=== PATIENT | male | born 1955 | race African-American/Black ===

== ENCOUNTER 2023-06-13 10:47 | Outpatient (AMB) | payer OTHER, SELFPAY ==
[2023-06-13 10:52] VITALS: BP 140/80; PULSE 83; O2SAT 98; BMI 26.4
--- NOTE | 2023-06-13 10:52 | MHC.PC.OV ---
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 Allergies No Known Allergies Allergy (Verified 06/13/23 11:48) Medication List - Last Reconciled 06/13/23 by Jasen Angeles PA-C No Known Home Meds Tobacco use date assessed: 06/13/23 Fall risk assessment: No Falls in past year Last assessed Fall Risk: 06/13/23 Dental Screening Dental Screen Date: 06/13/23 Did you have a dental visit in the last 12 months?: Yes Did you have a dental problem in the last 6 months where you did not have access to dental care?: No Was dental information given to patient?: 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 Past medical history of HTN. He reports he was on several medications for his blood pressure in the past though had side effects of rash, urinary frequency and edema. Has been trying to work on lifestyle modifications to control his blood pressure Patient's previous PCP was was at [facility]. He has been told by his previous PCP was prediabetic and had borderline high cholesterol. He has been making lifestyle modifications to his diet and trying to be more active in order to control his cholesterol and blood sugars. Reports he has been feeling better since lifestyle modifications have been implemented. Colon cancer screening: Has not had any colon cancer screening. He is willing to do Cologuard .. Vaccines: Needs up-to-date tetanus, up-to-date with COVID and pneumonia vaccines, Considering Shingrex. [facility] Family History Mother No problems noted. Father No problems noted. Brother No problems noted. Brother No problems noted. Brother No problems noted. Brother No problems noted. Sister No problems noted. Sister No problems noted. Sister No problems noted. Sister No problems noted. Daughter No problems noted. Daughter No problems noted. Son No problems noted. Son No problems noted. Social History (Updated 06/13/23 @ 11:56 by Jasen Angeles PA-C) Housing: Apartment Alcohol intake: current Alcohol intake frequency: holidays/special occasions only Alcohol type: beer Patient Tobacco Use Status: Former Tobacco user Tobacco use type: Cigarette e-Cigarette/Vaping Use: Never Used Second Hand Smoke Exposure: No service: No Current occupational status: retired Current occupational exposures/hazards: No Cognitive needs: No Hearing needs: No Vision needs: Yes Questionnaire PHQ-9 Over the last 2 weeks, how often have you been bothered by any of the following problems? 1. Little interest or pleasure in doing things: more than half the days 2. Feeling down, depressed, or hopeless: more than half the days 3. Trouble falling or staying asleep, or sleeping too much: not at all 4. Feeling tired or having little energy: not at all 5. Poor appetite or overeating: not at all 6. Feeling bad about yourself - or that you are a failure or have let yourself or your family down: not at all 7. Trouble concentrating on things, such as reading the newspaper or watching television: not at all 8. Moving or speaking so slowly that other people could have noticed. Or the opposite - being so fidgety or restless that you have been moving around a lot more than usual: not at all 9. Thoughts that you would be better off or of hurting yourself in some way: not at all Total score: 4 Depression Screening Interpretation: Negative [id number] - PHQ-9 Billing: Yes Source: Developed by Drs. Bartolome Diaz, Paola Villanueva, Ishmael Jung and colleagues, with an educational gillian from [employer]. Thrive Questionnaire Date Thrive assessed: 06/13/23 I am a: Patient What is your living situation today?: I have a steady place to live Within the past 12 months, did the food you bought not last and you didn't have the money to get more?: Never true Within the past 12 months, did you worry whether your food would run out before you got money to buy more?: Never true Do you have trouble paying for medicines?: No Do you have trouble getting transportation to medical appointments?: No Do you have trouble paying your heating and electricity bill?: No Do you have trouble taking care of your child, family member or friend?: No Do you have trouble with day-to-day activities such as bathing, preparing meals, shopping, managing finances, etc.?: No Are you currently unemployed and looking for a job?: No Are you interested in more education?: No Currently or been in a relationship where the following occur: no concerns reported AUDIT C Alcohol Use Questionnaire (AUDIT-C) 1. How often do you have a drink containing alcohol?: 2-3 times a week 2. How many drinks containing alcohol do you have on a typical day when you are drinking?: 1 or 2 3. How often do you have six or more drinks on one occasion?: Never Total Score: 3 HALEY-7 AMB Questionnaire HALEY-7 Date HALEY - 7 assessed: 06/13/23 Feeling nervous, anxious, or on edge: 1 = Several days Not being able to stop or control worryin = Not at all Worrying too much about different things: 0 = Not at all Trouble relaxin = Not at all Being so restless that it is hard to sit still: 0 = Not at all Becoming easily annoyed or irritable: 0 = Not at all Feeling afraid as if something awful might happen: 0 = Not at all Total HALEY-7 score (0-4 normal; 5-9 mild; 10-14 moderate; 15-21 severe): 1 Source: Developed by Drs. Bartolome Diaz, Paola Villanueva, Ishmael Jung and colleagues, with an educational gillian from [employer]. HALEY-7 Assessment Billing HALEY-7 Assessment Tool: HALEY-7 Assessment 38069 Review of Systems Const Denies body aches, Denies chills, Denies excessive sweating, Denies fatigue, Denies fever(s) and Denies headache(s) Eyes Denies blurry vision ENT Denies dysphagia, Denies vertigo, Denies dizziness, Denies headache(s), Denies hearing loss and Denies tinnitus Card Denies chest pain, Denies chest pain with activity, Denies syncope, Denies irregular heart rhythm and Denies dyspnea Resp Denies chest congestion, Denies cough, Denies hemoptysis, Denies dyspnea and Denies wheezing GI Denies abdominal pain, Denies melena, Denies hematochezia, Denies coffee ground emesis, Denies dysphagia, Denies diarrhea, Denies nausea and Denies vomiting Denies difficulty urinating, Denies dysuria, Denies urinary frequency, Denies urinary hesitancy and Denies urinary urgency Musc Denies arthralgias, Denies limited range of motion, Denies muscle cramps and Denies muscle weakness Skin/Breast Denies rash and Denies skin ulcer Neuro Denies Abnormal speech present, Denies confusion, Denies vertigo, Denies dizziness, Denies syncope, Denies headache(s), Denies memory loss and Denies seizure-like activity Psych Denies anxiety, Denies confusion, Denies depression, Denies memory loss, Denies panic attacks and Denies paranoia Endo Denies excessive sweating, Denies fatigue, Denies flushing, Denies polydipsia and Denies polyuria Aller/Immun Denies wheezing Physical exam (Primary Care) Vital Signs: Last Vital Signs Pulse 83 06/13/23 10:52 BP 140/80 H 06/13/23 10:52 Pulse Ox 98 06/13/23 10:52 Oxygen Delivery Method Room Air 06/13/23 10:52 BMI result Body Mass Index 26.4 Tobacco/Smoking Status: Tobacco use Status Tobacco use date assessed 06/13/23 06/13/23 11:24 Patient Tobacco Use Status Former Tobacco user 06/13/23 11:56 Tobacco use type Cigarette 06/13/23 11:56 e-Cigarette/Vaping Use Never Used 06/13/23 11:56 PHQ-9: PHQ-9 Score PHQ-9: Total score 4 06/13/23 11:58 Depression Screening Interpretation: Negative Thrive Assessment: Date of Thrive Assessment Date Thrive assessed 06/13/23 06/13/23 10:53 Currently or been in a relationship where the following occur: no concerns reported Const General: cooperative, comfortable, no acute distress, alert and awake; No confusion Orientation/consciousness: oriented to person, oriented to place, patient oriented x3 and No confusion HENMT Head: Yes normocephalic Ears: external ears normal and TM's normal bilaterally Face and sinus: No sinus tenderness Mouth: Normal oral and palatal mucosa present and tongue normal Teeth and gingiva: dentition normal and gingiva normal Throat: Yes posterior oropharynx normal, Yes tonsils normal and Yes uvula midline Eyes Conjunctivae: conjunctivae normal Sclerae: sclerae normal Pupils: Equal, round and reactive pupils present EOM: EOMs intact bilaterally Direct Ophthalmoscopy: No no photophobia Neck Neck: Yes no lymphadenopathy, No tender and Yes no JVD Thyroid: Thyroid normal Carotids: no bruits Chest Chest palpation & inspection: no tenderness Resp Effort & Inspection: normal respiratory effort, no audible wheezes, not labored and no stridor Auscultation: no crackles, no rales, no rhonchi and no wheezes Cardio Jugular venous distension: no JVD Rate: regular rate, not bradycardic and not tachycardic Rhythm: regular rhythm Bruits: no carotid bruits Peripheral pulses: Peripheral pulses 2+ throughout GI Inspection: Yes normal to inspection, No abdominal wall ecchymosis and No visible herniation Palpation (GI): Soft to palpation, nontender, no guarding, not rigid and No hepatosplenomegaly present Auscultation: normoactive bowel sounds General: Yes no CVA tenderness Back/Spine/Pelvis Back: no CVA tenderness and No back tenderness Cervical Spine: cervical ROM normal Thoracic/Lumbar Spine: thoracic and lumbar spine normal to inspection, straight leg raise negative bilaterally, No thoraco-lumbar ROM limited and No lumbar spinal tenderness Skin Lesions: no lesions Rashes: no rashes Wounds: no wounds Neuro General: oriented to person, oriented to place, patient oriented x3, CN's II-XI intact bilaterally and No confusion Cranial nerves: Yes Equal, round and reactive pupils present and Yes Normal accommodation reflex present Cognition (Neuro): normal cognition Speech: No Abnormal speech present Gait exam (Neuro): Normal gait present Motor exam (neuro): 5/5 motor strength present throughout Extrem Right upper extremity: full ROM; no cyanosis Left upper extremity: full ROM; no cyanosis Right lower extremity: no edema Left lower extremity: no edema Psych Appearance: grossly normal Mental Status: mental status grossly normal Affect: normal affect Attitude: cooperative Thought process: Normal thought process present Assessment and Plan Assessment & Plan (1) Annual physical exam: Code(s): Z00.00 - Encounter for general adult medical examination without abnormal findings (2) Screening for diabetes mellitus (DM): Code(s): Z13.1 - Encounter for screening for diabetes mellitus (3) HTN (hypertension): Code(s): I10 - Essential (primary) hypertension Plan: Patient has a history of hypertension, was treated with antihypertensive medications in the past though had side effect. Has been working on lifestyle modifications to control his blood pressure. He does monitors blood pressure at home reports 130s to 135 systolic. Otherwise denies any headaches, chest pain, shortness of breath. Will continue to work on lifestyle modifications to control his blood pressure and continue monitoring at home with goal blood pressure be below 140/90 (4) Screening PSA (prostate specific antigen): Code(s): Z12.5 - Encounter for screening for malignant neoplasm of prostate (5) Impaired glucose metabolism: Code(s): R73.09 - Other abnormal glucose Plan: Patient has been told he is a prediabetic and has made lifestyle modifications. Will recheck fasting lipids in A1c to assure reasonable range. (6) Colon cancer screening: Code(s): Z12.11 - Encounter for screening for malignant neoplasm of colon Plan: Willing to do Cologuard (7) Borderline high cholesterol: Code(s): E78.9 - Disorder of lipoprotein metabolism, unspecified Plan: Patient has been told he had borderline high cholesterol by his previous PCP. Will check a fasting lipid panel to assure or reasonable total cholesterol and LDL. Will consider statin therapy if LDL above 160 Orders: Orders Comprehensive [place]. Panel Fast Today R73.09 - Other abnormal glucose Hemoglobin A1c Today R73.09 - Other abnormal glucose Complete Blood Count no Diff Today R73.09 - Other abnormal glucose Prostate Specific Antigen Scr Today Z12.5 - Encounter for screening for malignant neoplasm of prostate Microalbumin, Random (w Creat) Today I10 - Essential (primary) hypertension Lipid Panel Today E78.9 - Disorder of lipoprotein metabolism, unspecified Referrals Cologuard Test Z12.11 - Encounter for screening for malignant neoplasm of colon Coding Level of Care Code New Pt Prev Care >65yr (85454) Diagnoses Annual physical exam Z00.00 Screening for diabetes mellitus (DM) Z13.1 HTN (hypertension) I10 Screening PSA (prostate specific antigen) Z12.5 Impaired glucose metabolism R73.09 Colon cancer screening Z12.11 Borderline high cholesterol E78.9 Additional Codes HALEY-7 Assessment Billing - HALEY-7 Assessment Tool: HALEY-7 Assessment [id number] ([id number])
== END 2023-06-13 12:30 | disposition home or self-care (01) ==
PROVIDERS: PCP Physician Assistant; Visit Provider Physician Assistant
DX: Z00.00 Encounter for general adult medical examination without abnormal findings (principal); Z13.1 Encounter for screening for diabetes mellitus; I10 Essential (primary) hypertension; Z12.5 Encounter for screening for malignant neoplasm of prostate; R73.09 Other abnormal glucose; Z12.11 Encounter for screening for malignant neoplasm of colon; E78.9 Disorder of lipoprotein metabolism, unspecified
CPT/HCPCS: 99387

== ENCOUNTER 2023-06-14 09:28 | Outpatient (REF) | payer OTHER, SELFPAY ==
[2023-06-14 09:50] LABS: Hematocrit 42.2 % (42.0-52.0); Hemoglobin 13.4 g/dl (14.0-18.0); Mean Corpuscular HGB Conc 31.8 g/dl (31.0-36.0); Mean Corpuscular Hemoglobin 27.2 pg (27.0-33.0); Mean Corpuscular Volume 85.8 fL (80.0-98.0); Platelet Count 186 X10*3/uL (160-400); Red Blood Count 4.92 X10*6/uL (4.60-5.80); Red Cell Distribution Width 14.4 % (11.0-16.0); White Blood Count 4.1 X10*3/uL (4.8-10.8)
[2023-06-14 10:01] LABS: Estimated Average Glucose 120 mg/dL; Hemoglobin A1c % 5.8 %
[2023-06-14 10:55] LABS: Creatinine Urine 189.16 mg/dL; Microalbumin Urine < 5.0 mg/L
[2023-06-14 11:01] LABS: Alanine Aminotransferase 43 U/L (0-40); Albumin Level 4.2 g/dL (3.5-5.0); Alkaline Phosphatase 49 U/L (39-117); Anion Gap 16 (12-20); Aspartate Amino Transferase 30 U/L (5-37); Bilirubin Total 0.6 mg/dL (0.0-1.0); Blood Urea Nitrogen 12 mg/dL (9-16); Calcium 9.4 mg/dL (8.4-10.2); Carbon Dioxide 23 mmol/L (22-29); Chloride 105 mmol/L (96-108); Cholesterol 252 mg/dL; Estimated Glomerular Filt Rate > 60; Glucose Fasting 99 mg/dL (60-99); HDL Cholesterol 44 mg/dL; LDL Cholesterol Calculated 163 mg/dl; Potassium 4.6 mmol/L (3.3-5.1); Sodium 139 mmol/L (135-145); Total Protein 7.8 g/dL (6.5-8.0); Triglycerides 228 mg/dL
[2023-06-14 11:23] LABS: Prostate Specific Antigen Scr 3.85 ng/mL (<0.05-4.0)
== END 2023-06-14 09:29 | disposition home or self-care (01) ==
LOC: HO.LAB 09:28
PROVIDERS: PCP Physician Assistant; Visit Provider Physician Assistant
DX: Z12.5 Encounter for screening for malignant neoplasm of prostate (principal); R73.09 Other abnormal glucose; I10 Essential (primary) hypertension; E78.9 Disorder of lipoprotein metabolism, unspecified
CPT/HCPCS: 36415; 80053; 80061; 82043; 83036; 84153; 85027

== ENCOUNTER 2023-09-16 10:49 | Outpatient (AMB) | payer OTHER, SELFPAY ==
--- NOTE | 2023-09-16 10:52 | MHC.PC.OV ---
Vital Signs 09/16/23 10:53 Height 6 ft 4 in Weight 218 lb BMI 26.5 BP 130/76 Blood Pressure Location Lt brachial Position Sitting Pulse 73 Pulse Source Pulse Oximeter Pulse Oximetry (%) 98 Oxygen Delivery Method Room Air Intake Visit Reasons: f/u HTN/ HLD Intake Note: Patient is here to follow up on HTN, HLD. Firer Retort Required: No Binder Cutter: Not Required per policy Accompanied by: Self / Same As Patient Allergies No Known Allergies Allergy (Verified 09/16/23 11:04) Medication List - Last Reconciled 09/16/23 by Jasen Angeles PA-C simvastatin 10 mg PO DAILY Tobacco use date assessed: 09/16/23 Fall risk assessment: No Falls in past year Last assessed Fall Risk: 09/16/23 Dental Screening Dental Screen Date: 09/16/23 Did you have a dental visit in the last 12 months?: Yes Did you have a dental problem in the last 6 months where you did not have access to dental care?: No Was dental information given to patient?: Patient has dentist HPI f/u HTN/ HLD HPI Details Patient is a 68-year-old male here today for a follow-up visit. Patient has a past medical history significant for hypertension, hyperlipidemia, impaired glucose metabolism Concern--> reports right ear has felt congested in does use [id number] ear drops to help remove wax. .. Hyperlipidemia: Most recent labs showing high total cholesterol. Patient has been started on low-dose statin therapy will recheck lipid panel to assure normalization of cholesterol and LDL. .. Impaired glucose metabolism: Most recent A1c of 5.8. Fasting blood sugar appropriate below 100. He will continue to work on lifestyle modifications. . History of hypertension: Blood pressure readings today in office acceptable. His Hypertension Has been diet and lifestyle managed Laboratory Tests 06/14/23 09:40 Hgb 13.4 L Hemoglobin A1c % 5.8 ALT 43 H Cholesterol 252 LDL Cholesterol, C alc 163 [facility] Surgical History (Updated 09/16/23 @ 10:56 by MARIAN Prater) No pertinent past surgical history Family History Mother No problems noted. Father No problems noted. Brother No problems noted. Brother No problems noted. Brother No problems noted. Brother No problems noted. Sister No problems noted. Sister No problems noted. Sister No problems noted. Sister No problems noted. Daughter No problems noted. Daughter No problems noted. Son No problems noted. Son No problems noted. Social History Housing: Apartment Alcohol intake: current Alcohol intake frequency: holidays/special occasions only Alcohol type: beer Patient Tobacco Use Status: Former Tobacco user Tobacco use type: Cigarette e-Cigarette/Vaping Use: Never Used Second Hand Smoke Exposure: No service: No Current occupational status: retired Current occupational exposures/hazards: No Cognitive needs: No Hearing needs: No Vision needs: Yes Questionnaire Thrive Questionnaire Date Thrive assessed: 06/13/23 HALEY-7 AMB Questionnaire HALEY-7 Date HALEY - 7 assessed: 06/13/23 Source: Developed by Drs. Bartolome Diaz, Paola Villanueva, Ishmael Jung and colleagues, with an educational gillain from [employer]. Review of Systems Const Denies headache(s) Eyes Denies loss of vision ENT Denies vertigo, Denies dizziness, Denies headache(s) and Denies sore throat Card Denies chest pain, Denies leg edema and Denies lightheadedness Resp Denies cough, Denies hemoptysis and Denies wheezing GI Denies abdominal pain, Denies melena, Denies constipation, Denies diarrhea and Denies vomiting Denies dysuria, Denies urinary frequency and Denies urinary urgency Musc Denies arthralgias, Denies joint swelling, Denies numbness and Denies tingling Neuro Denies Abnormal speech present, Denies behavioral changes, Denies vertigo, Denies dizziness, Denies headache(s), Denies loss of vision, Denies memory loss, Denies numbness and Denies tingling Psych Denies anxiety, Denies behavioral changes, Denies depression, Denies memory loss and Denies panic attacks Rubio/Lymph Denies easy bleeding and Denies easy bruising Aller/Immun Denies wheezing Physical exam (Primary Care) Vital Signs: Last Vital Signs Pulse 73 09/16/23 10:53 BP 130/76 09/16/23 10:53 Pulse Ox 98 09/16/23 10:53 Oxygen Delivery Method Room Air 09/16/23 10:53 BMI result Body Mass Index 26.5 Tobacco/Smoking Status: Tobacco use Status Tobacco use date assessed 09/16/23 09/16/23 10:57 Patient Tobacco Use Status Former Tobacco user 09/16/23 10:57 Tobacco use type Cigarette 09/16/23 10:57 e-Cigarette/Vaping Use Never Used 09/16/23 10:57 Thrive Assessment: Date of Thrive Assessment Date Thrive assessed 06/13/23 09/16/23 10:57 Const General: healthy appearing, no acute distress, alert and awake Nutritional Appearance: well nourished Orientation/consciousness: oriented to person, oriented to place and oriented to time HENMT Other: RIGHT EAR CERUMEN IMPACTION General nose exam: Normal nasal mucous membranes and turbinates present Eyes Conjunctivae: conjunctivae normal Sclerae: sclerae normal Pupils: Equal, round and reactive pupils present Neck Neck: Yes no lymphadenopathy and Yes no JVD Thyroid: Thyroid normal Carotids: no bruits Resp Effort & Inspection: normal respiratory effort and not tachypneic Auscultation: no crackles, no rales, no rhonchi and no wheezes Cardio Rate: regular rate Rhythm: regular rhythm Heart sounds: no murmurs and normal S1 and S2 GI Palpation (GI): Soft to palpation, nontender, no hepatomegaly and no splenomegaly Auscultation: normal bowel sounds Skin General skin exam: no rashes or lesions noted and dry skin Neuro General: oriented to person, oriented to place and oriented to time Cranial nerves: Yes Equal, round and reactive pupils present Speech: No Abnormal speech present Gait exam (Neuro): Normal gait present Motor exam (neuro): no tremor noted Extrem Right upper extremity: full ROM Left upper extremity: full ROM Right lower extremity: full ROM; no edema Left lower extremity: full ROM; no edema Psych Mental Status: mental status grossly normal Speech and movement: Normal speech and movement present Affect: normal affect Attitude: cooperative Thought process: Normal thought process present Office Procedures Cerumen Removal From which ear canal was the cerumen removed: right Removal: irrigation and otoscope w/curette Notes: patient tolerated procedure well and no complications 11706-Lab Irrigation/Lavage Assessment and Plan Assessment & Plan (1) HTN (hypertension): Code(s): I10 - Essential (primary) hypertension Qualifiers: Hypertension type: primary hypertension Qualified Code(s): I10 - Essential (primary) hypertension Plan: Patient has a history of hypertension, was treated with antihypertensive medications in the past though had side effect. Has been working on lifestyle modifications to control his blood pressure. He does monitors blood pressure at home reports 130s to 135 systolic. Otherwise denies any headaches, chest pain, shortness of breath. Will continue to work on lifestyle modifications to control his blood pressure and continue monitoring at home with goal blood pressure be below 140/90 (2) Impaired glucose metabolism: Code(s): R73.09 - Other abnormal glucose Plan: Patient has been told he is a prediabetic and has made lifestyle modifications. Will recheck fasting lipids in A1c to assure reasonable range. (3) HLD (hyperlipidemia): Code(s): E78.5 - Hyperlipidemia, unspecified Qualifiers: Hyperlipidemia type: mixed hyperlipidemia Qualified Code(s): E78.2 - Mixed hyperlipidemia Plan: Patient's most recent lipid panel showing high total cholesterol. Has been started on low-dose statin therapy and will recheck his lipid panel to ensure more appropriate lipid panel. Goal LDL to be below 160 (4) Impacted cerumen of right ear: Code(s): H61.21 - Impacted cerumen, right ear Plan: Remove cerumen out of right here today in office. Orders: Orders Microalbumin, Random (w Creat) Today I10 - Essential (primary) hypertension Lipid Panel Today E78.5 - Hyperlipidemia, unspecified Comprehensive [place]. Panel Fast Today I10 - Essential (primary) hypertension Coding Level of Care Code Est Pt Level 4 (84989) Diagnoses Primary hypertension I10 Hypertension type: primary hypertension Impaired glucose metabolism R73.09 Mixed hyperlipidemia E78.2 Hyperlipidemia type: mixed hyperlipidemia Impacted cerumen of right ear H61.21 CPT Codes Office Procedure - CPT: 37477-Bgh Irrigation/Lavage ([id number])
[2023-09-16 10:53] VITALS: BP 130/76; PULSE 73; O2SAT 98; BMI 26.5
== END 2023-09-16 11:35 | disposition home or self-care (01) ==
PROVIDERS: PCP Physician Assistant; Visit Provider Physician Assistant
DX: I10 Essential (primary) hypertension (principal); R73.09 Other abnormal glucose; E78.2 Mixed hyperlipidemia; H61.21 Impacted cerumen, right ear
CPT/HCPCS: 69210; 99214

== ENCOUNTER 2023-09-17 10:36 | Outpatient (REF) | payer OTHER, SELFPAY ==
[2023-09-17 12:32] LABS: Alanine Aminotransferase 45 U/L (0-40); Albumin Level 4.3 g/dL (3.5-5.0); Alkaline Phosphatase 48 U/L (39-117); Anion Gap 13 (12-20); Aspartate Amino Transferase 32 U/L (5-37); Bilirubin Total 0.7 mg/dL (0.0-1.0); Blood Urea Nitrogen 14 mg/dL (9-16); Calcium 9.8 mg/dL (8.4-10.2); Carbon Dioxide 26 mmol/L (22-29); Chloride 107 mmol/L (96-108); Cholesterol 235 mg/dL (<200); Estimated Glomerular Filt Rate > 60; Glucose Fasting 103 mg/dL (60-99); HDL Cholesterol 52 mg/dL (>40); LDL Cholesterol Calculated 140 mg/dL (<100); Potassium 4.5 mmol/L (3.3-5.1); Sodium 141 mmol/L (135-145); Total Protein 7.9 g/dL (6.5-8.0); Triglycerides 216 mg/dL (<150)
== END 2023-09-17 10:37 | disposition home or self-care (01) ==
LOC: HO.LAB 10:36
PROVIDERS: PCP Physician Assistant; Visit Provider Physician Assistant
DX: I10 Essential (primary) hypertension (principal); E78.5 Hyperlipidemia, unspecified
CPT/HCPCS: 36415; 80053; 80061

== ENCOUNTER 2024-04-27 14:25 | Outpatient (AMB) | payer OTHER, SELFPAY ==
--- NOTE | 2024-04-27 14:31 | AM.OFFWIN_ITS ---
Intake Vital Signs 04/27/24 14:38 Height 6 ft 4 in Weight 215 lb BMI 26.2 BP 132/80 Blood Pressure Location Rt brachial Position Sitting Pulse 80 Pulse Source Pulse Oximeter Temp 98.0 F Temp Source Temporal Artery Scan Pulse Oximetry (%) 98 Intake Visit Reasons: EP RT ankle Swelling Intake Note: pt is here for right ankle swelling for 4 days denies any injury Patient Tobacco Use Status: Former Tobacco user Allergies No Known Allergies Allergy (Verified 04/27/24 14:36) Do you need a note to return to daycare/school/sports/work: No HPI HPI Comments History of Present Illness Details Patient is a 68-year-old male with a history of gout flares complaining of right ankle swelling and joint pain for 4 days. He is able to ambulate on it albeit gently. He denies any trauma. He states the pain is rated the joint and does not radiate, he denies any loss of sensation or strength. He denies any fevers. He states this has happened before in different joints and he usually gets a medication for a few days and it goes away. He is unsure what that medication is but states he does not take a daily medication for his gout. [facility] Surgical History (Updated 09/16/23 @ 10:56 by MARIAN Prater) No pertinent past surgical history Family History Mother No problems noted. Father No problems noted. Brother No problems noted. Brother No problems noted. Brother No problems noted. Brother No problems noted. Sister No problems noted. Sister No problems noted. Sister No problems noted. Sister No problems noted. Daughter No problems noted. Daughter No problems noted. Son No problems noted. Son No problems noted. Social History Housing: Apartment Alcohol intake: current Alcohol intake frequency: holidays/special occasions only Alcohol type: beer Patient Tobacco Use Status: Former Tobacco user Tobacco use type: Cigarette e-Cigarette/Vaping Use: Never Used Second Hand Smoke Exposure: No service: No Current occupational status: retired Current occupational exposures/hazards: No Cognitive needs: No Hearing needs: No Vision needs: Yes Review of Systems Const All systems reviewed & are unremarkable except as noted in HPI and below Physical Exam Vital Signs: Last Vital Signs Temp 98.0 F 04/27/24 14:38 Pulse 80 04/27/24 14:38 BP 132/80 04/27/24 14:38 Pulse Ox 98 04/27/24 14:38 BMI result Body Mass Index 26.2 Const General: cooperative, healthy appearing, comfortable, no acute distress and well developed Limitations: no limitations HEENT Head: Yes normal to inspection Eyes General: appearance normal, both eyes and all related structures Neck Neck: Yes normal visual inspection and Yes full ROM Resp Effort & Inspection: normal respiratory effort and able to speak in complete sentences Extrem Right lower extremity: ankle Details: tenderness, swelling and normal ROM; no unusual warmth, no abrasions, no lacerations, no ecchymosis and no crepitus Left lower extremity: ankle Details: normal to inspection Assessment & Plan Assessment & Plan (1) Gout flare: Code(s): M10.9 - Gout, unspecified Qualifiers: Gout site: ankle Encounter type: initial encounter Laterality: right Plan: Advised of risks and benefits of taking prednisone. Follow up with primary care doctor if no resolution, patient states he does have a appointment with his PCP in 10 days. Plan See above Medications: New prednisone 20 mg PO DAILY 5 tabs 0RF Coding Level of Care Code Est Pt Level 3 (87091) Diagnoses Gout flare M10.9 Gout site: ankle Encounter type: initial encounter Laterality: right
[2024-04-27 14:38] VITALS: BP 132/80; PULSE 80; TEMP 36.7; O2SAT 98; BMI 26.2
== END 2024-04-27 14:58 | disposition home or self-care (01) ==
PROVIDERS: PCP Physician Assistant; Visit Provider Physician Assistant
DX: M10.9 Gout, unspecified (principal)
CPT/HCPCS: 99213

== ENCOUNTER 2024-05-06 07:32 | Outpatient (REF) | payer OTHER, SELFPAY ==
[2024-05-06 08:47] LABS: Alanine Aminotransferase 28 U/L (0-40); Albumin Level 4.2 g/dL (3.5-5.0); Alkaline Phosphatase 46 U/L (39-117); Anion Gap 14 (12-20); Aspartate Amino Transferase 22 U/L (5-37); Bilirubin Total 0.5 mg/dL (0.0-1.0); Blood Urea Nitrogen 12 mg/dL (9-16); Calcium 9.6 mg/dL (8.4-10.2); Carbon Dioxide 27 mmol/L (22-29); Chloride 105 mmol/L (96-108); Cholesterol 262 mg/dL (<200); Estimated Glomerular Filt Rate 56; Glucose Fasting 107 mg/dL (60-99); HDL Cholesterol 41 mg/dL (>40); LDL Cholesterol Calculated 168 mg/dL (<100); Potassium 4.4 mmol/L (3.3-5.1); Sodium 142 mmol/L (135-145); Total Protein 7.9 g/dL (6.5-8.0); Triglycerides 268 mg/dL (<150)
[2024-05-06 08:56] LABS: Creatinine Urine 198.15 mg/dL; Microalbum/Creatinine Ratio Ur 2.5 ug/mg cr (<30)
[2024-05-06 08:57] LABS: Prostate Specific Antigen Scr 6.15 ng/mL (<0.05-4.0)
== END 2024-05-06 07:33 | disposition home or self-care (01) ==
LOC: HO.LAB 07:32
PROVIDERS: PCP Physician Assistant; Visit Provider Physician Assistant
DX: I10 Essential (primary) hypertension (principal); E78.2 Mixed hyperlipidemia; Z12.5 Encounter for screening for malignant neoplasm of prostate
CPT/HCPCS: 36415; 80053; 80061; 82043; 82570; 84153

== ENCOUNTER 2024-05-14 14:44 | Outpatient (AMB) | payer OTHER, SELFPAY ==
[2024-05-14 14:57] VITALS: BP 172/102; PULSE 106; O2SAT 95; BMI 26.9
--- NOTE | 2024-05-14 14:57 | A.OFFPC_ITS ---
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 Patient has a past medical history significant for hypertension, hyperlipidemia, impaired glucose metabolism Concern--> noted elevated PSA most recent labs. Up 3 point since last year. He reports dietary indiscretion has been drinking more alcohol. He is even came down with gout attack in his ankle that he require oral steroids. Also noted some weight gain since last office visit. .. Hyperlipidemia: Most recent labs showing high total cholesterol. Patient did start low-dose simvastatin though could not tolerate side effects of urinary frequency and sexual dysfunction and has stopped this medication. PLAN: He will work on lifestyle and dietary modification. .. Impaired glucose metabolism: Most recent A1c of 5.8. Fasting blood sugar appropriate below 100. He will continue to work on lifestyle modifications. . History of hypertension: Blood pressure readings today in office acceptable. His Hypertension Has been diet and lifestyle managed . Laboratory Tests 06/14/23 09/17/23 05/06/24 09:40 11:13 07:40 Fasting Glucose 103 H Triglycerides Cholesterol LDL Cholesterol, C alc 140 H PSA Screen 3.85 Urine Microalbumin 5.0 05/06/24 07:42 Fasting Glucose 107 H Triglycerides 268 H Cholesterol 262 H LDL Cholesterol, C alc PSA Screen 6.15 H Urine Microalbumin PFSH Surgical History No pertinent past surgical history Family History Mother No problems noted. Father No problems noted. Brother No problems noted. Brother No problems noted. Brother No problems noted. Brother No problems noted. Sister No problems noted. Sister No problems noted. Sister No problems noted. Sister No problems noted. Daughter No problems noted. Daughter No problems noted. Son No problems noted. Son No problems noted. Social History Housing: Apartment Alcohol intake: current Alcohol intake frequency: holidays/special occasions only Alcohol type: beer Patient Tobacco Use Status: Former Tobacco user Tobacco use type: Cigarette e-Cigarette/Vaping Use: Never Used Second Hand Smoke Exposure: No service: No Current occupational status: retired Current occupational exposures/hazards: No Cognitive needs: No Hearing needs: No Vision needs: Yes Questionnaire PHQ-9 Over the last 2 weeks, how often have you been bothered by any of the following problems? 1. Little interest or pleasure in doing things: nearly every day 2. Feeling down, depressed, or hopeless: nearly every day 3. Trouble falling or staying asleep, or sleeping too much: nearly every day 4. Feeling tired or having little energy: more than half the days 5. Poor appetite or overeating: more than half the days 6. Feeling bad about yourself - or that you are a failure or have let yourself or your family down: more than half the days 7. Trouble concentrating on things, such as reading the newspaper or watching television: nearly every day 8. Moving or speaking so slowly that other people could have noticed. Or the opposite - being so fidgety or restless that you have been moving around a lot more than usual: more than half the days 9. Thoughts that you would be better off or of hurting yourself in some way: several days Total score: 21 Depression Screening Interpretation: Positive Depression Screening Follow-up: Existing condition and Declines treatment Depression Screening Done: Yes 96238 - PHQ-9 Billing: Yes Source: Developed by Drs. Bartolome Diaz, Paola Villanueva, Ishmael Jung and colleagues, with an educational gillian from [employer]. Thrive Questionnaire Date Thrive assessed: 05/14/24 I am a: Patient What is your living situation today?: I have a steady place to live Within the past 12 months, did the food you bought not last and you didn't have the money to get more?: Never true Within the past 12 months, did you worry whether your food would run out before you got money to buy more?: Never true Do you have trouble paying for medicines?: No Do you have trouble getting transportation to medical appointments?: No Do you have trouble paying your heating and electricity bill?: No Do you have trouble taking care of your child, family member or friend?: No Do you have trouble with day-to-day activities such as bathing, preparing meals, shopping, managing finances, etc.?: No Are you currently unemployed and looking for a job?: No Are you interested in more education?: No Please select the resources that you would like help with: None Currently or been in a relationship where the following occur: No concerns reported THRIVE Score: 0 AUDIT C Alcohol Use Questionnaire (AUDIT-C) 1. How often do you have a drink containing alcohol?: 2-3 times a week 2. How many drinks containing alcohol do you have on a typical day when you are drinking?: 5 or 6 3. How often do you have six or more drinks on one occasion?: Weekly Total Score: 8 HALEY-7 AMB Questionnaire HALEY-7 Date HALEY - 7 assessed: 05/14/24 Feeling nervous, anxious, or on edge: 2 = More than half the days Not being able to stop or control worryin = More than half the days Worrying too much about different things: 2 = More than half the days Trouble relaxin = More than half the days Being so restless that it is hard to sit still: 2 = More than half the days Becoming easily annoyed or irritable: 2 = More than half the days Feeling afraid as if something awful might happen: 2 = More than half the days Total HALEY-7 score (0-4 normal; 5-9 mild; 10-14 moderate; 15-21 severe): 14 Source: Developed by Drs. Bartolome Diaz, Paola Villanueva, Ishmael Jung and colleagues, with an educational gillian from [employer]. HALEY-7 Assessment Billing HALEY-7 Assessment Tool: HALEY-7 Assessment 73026 Review of Systems Const Denies headache(s) Eyes Denies loss of vision ENT Denies vertigo, Denies dizziness, Denies headache(s) and Denies sore throat Card Denies chest pain, Denies leg edema and Denies lightheadedness Resp Denies cough, Denies hemoptysis and Denies wheezing GI Denies abdominal pain, Denies melena, Denies constipation, Denies diarrhea and Denies vomiting Denies dysuria, Denies urinary frequency and Denies urinary urgency Musc Denies arthralgias, Denies joint swelling, Denies numbness and Denies tingling Neuro Denies Abnormal speech present, Denies behavioral changes, Denies vertigo, Denies dizziness, Denies headache(s), Denies loss of vision, Denies memory loss, Denies numbness and Denies tingling Psych Denies anxiety, Denies behavioral changes, Denies depression, Denies memory loss and Denies panic attacks Rubio/Lymph Denies easy bleeding and Denies easy bruising Aller/Immun Denies wheezing Physical exam (Primary Care) Vital Signs: Last Vital Signs Pulse 106 H 05/14/24 14:57 BP 172/102 H 05/14/24 14:57 Pulse Ox 95 05/14/24 14:57 Oxygen Delivery Method Room Air 05/14/24 14:57 BMI result Body Mass Index 26.9 Tobacco/Smoking Status: Tobacco use Status Tobacco use date assessed 09/16/23 05/14/24 15:05 Patient Tobacco Use Status Former Tobacco user 05/14/24 15:05 Tobacco use type Cigarette 05/14/24 15:05 e-Cigarette/Vaping Use Never Used 05/14/24 15:05 PHQ-9: PHQ-9 Score PHQ-9: Total score 21 05/14/24 15:10 Depression Screening Interpretation: Positive Depression Screening Follow-up: Existing condition and Declines treatment Thrive Assessment: Date of Thrive Assessment Date Thrive assessed 05/14/24 05/14/24 15:05 Currently or been in a relationship where the following occur: No concerns reported Const General: healthy appearing, no acute distress, alert and awake Nutritional Appearance: well nourished Orientation/consciousness: oriented to person, oriented to place and oriented to time HENMT Ears: TM's normal bilaterally General nose exam: Normal nasal mucous membranes and turbinates present Eyes Conjunctivae: conjunctivae normal Sclerae: sclerae normal Pupils: Equal, round and reactive pupils present Neck Neck: Yes no lymphadenopathy and Yes no JVD Thyroid: Thyroid normal Carotids: no bruits Resp Effort & Inspection: normal respiratory effort and not tachypneic Auscultation: no crackles, no rales, no rhonchi and no wheezes Cardio Rate: regular rate Rhythm: regular rhythm Heart sounds: no murmurs and normal S1 and S2 GI Palpation (GI): Soft to palpation, nontender, no hepatomegaly and no splenomegaly Auscultation: normal bowel sounds Skin General skin exam: no rashes or lesions noted and dry skin Neuro General: oriented to person, oriented to place and oriented to time Cranial nerves: Yes Equal, round and reactive pupils present Speech: No Abnormal speech present Gait exam (Neuro): Normal gait present Motor exam (neuro): no tremor noted Extrem Right upper extremity: full ROM Left upper extremity: full ROM Right lower extremity: full ROM; no edema Left lower extremity: full ROM; no edema Psych Mental Status: mental status grossly normal Speech and movement: Normal speech and movement present Affect: normal affect Attitude: cooperative Thought process: Normal thought process present Assessment and Plan Assessment & Plan (1) HTN (hypertension): Code(s): I10 - Essential (primary) hypertension Qualifiers: Hypertension type: primary hypertension Qualified Code(s): I10 - Essential (primary) hypertension Plan: Patient's blood pressure elevated today in office. He reports dietary and lifestyle indiscretion as of late. He reports he has been having a lot more stress in his personal life that could be contributing to his high blood pressure. He has been drinking more alcohol due to his birthday month . Unfortunately suffering with gout at this time and asking for more prednisone. He has not interested in starting any blood pressure medication at this time He will continue to monitor his blood pressure at home and start working on lifestyle and dietary modifications to control blood pressure. (2) Elevated PSA: Code(s): R97.20 - Elevated prostate specific antigen [PSA] Plan: Noted an elevation in his PSA. Of 3 point since last year. He has not interested in seeing a urologist at this time. He believes his elevation his PSAs due to his poor diet and stress. He would like to recheck his PSA in 4-6 months and if still elevated will consider Urology evaluation. (3) Gout flare: Code(s): M10.9 - Gout, unspecified Qualifiers: Encounter type: initial encounter Gout site: ankle Laterality: right Plan: Has been experiencing a gout flare in his right ankle likely due to dietary indiscretion and increased alcohol intake. Will supply patient with allopurinol and prednisone to use for p.r.n attack. (4) Impaired glucose metabolism: Code(s): R73.09 - Other abnormal glucose Plan: Patient has been told he is a prediabetic and has made lifestyle modifications. (5) HLD (hyperlipidemia): Code(s): E78.5 - Hyperlipidemia, unspecified Qualifiers: Hyperlipidemia type: mixed hyperlipidemia Qualified Code(s): E78.2 - Mixed hyperlipidemia Plan: Patient's most recent lipid panel showing high total cholesterol. He had started low-dose simvastatin though reports intolerable side effects. He will work on lifestyle and dietary modifications Goal LDL to be below 160 Orders: Orders Prostate Specific Antigen Scr 4 Months R97.20 - Elevated prostate specific anti gen [PSA], Z12.5 - Encounter for screening for malignant neoplasm of prostate Medications: New prednisone 20 mg PO DAILY 5 tabs 0RF 5 days M10.9 - Gout, unspecified allopurinol 100 mg PO DAILY 90 tabs 0RF 90 days M10.9 - Gout, unspecified Patient Instructions: Goal: Blood pressure to be below 140/90, LDL to be below 130 Barriers: Adherence to physical activity, medication and healthy eating habits Coding Level of Care Code Est Pt Level 4 (91535) Complex EM visit Add On G2211 Diagnoses Primary hypertension I10 Hypertension type: primary hypertension Elevated PSA R97.20 Gout flare M10.9 Encounter type: initial encounter Gout site: ankle Laterality: right Impaired glucose metabolism R73.09 Mixed hyperlipidemia E78.2 Hyperlipidemia type: mixed hyperlipidemia Additional Codes HALEY-7 Assessment Billing - HALEY-7 Assessment Tool: HALEY-7 Assessment 23859 ([id number])
== END 2024-05-14 15:29 | disposition home or self-care (01) ==
PROVIDERS: PCP Physician Assistant; Visit Provider Physician Assistant
DX: I10 Essential (primary) hypertension (principal); R97.20 Elevated prostate specific antigen [PSA]; M10.9 Gout, unspecified; R73.09 Other abnormal glucose; E78.2 Mixed hyperlipidemia
CPT/HCPCS: 99214; G2211

== ENCOUNTER 2024-08-17 08:42 | Outpatient (AMB) | payer OTHER, SELFPAY ==
[2024-08-17 10:57] VITALS: BP 152/90; PULSE 82; TEMP 36.6; O2SAT 98; BMI 26.9
--- NOTE | 2024-08-17 10:57 | MHC.OFFWIV ---
Intake Vital Signs 08/17/24 10:57 Height 6 ft 4 in Weight 221 lb BMI 26.9 BP 152/90 H Blood Pressure Location Rt brachial Position Sitting Pulse 82 Pulse Source Pulse Oximeter Temp 97.9 F Temp Source Oral Pulse Oximetry (%) 98 Intake Visit Reasons: EP Bilat Knee pain/swelling rt knee Intake Note: pt is here for bilat knee pain, denies injury Patient Tobacco Use Status: Former Tobacco user Allergies simvastatin Adverse Reaction (Intermediate, Verified 08/17/24 10:59) Urinary frequency Do you need a note to return to daycare/school/sports/work: No HPI EP Bilat Knee pain/swelling rt knee HPI Details This note is constructed using voice recognition software. While every effort has been made to ensure accuracy, engineer system administrator errors may have been included. The patient is a 69 year old male who presents to the clinic today with right knee pain and swelling. He notes that pain onset was Saturday after he had been drinking excessively the night prior. He does not have any known injury, however notes that he could have twisted removed and properly to cause an issue with pain. He does have a history of bilateral knee surgery but that was over 20 years ago. He denies fever, chills, red to this site, warmth. He has tried ibuprofen which helped some as well as a knee brace which also helped some, he tried ice followed by heat which seemed to also help the symptoms. He reports that after the right knee started hurting, he has been walking slightly off, and feels that his left knee has had some increased pain as compensation for how he is walking. [facility] Surgical History No pertinent past surgical history Family History Mother No problems noted. Father No problems noted. Brother No problems noted. Brother No problems noted. Brother No problems noted. Brother No problems noted. Sister No problems noted. Sister No problems noted. Sister No problems noted. Sister No problems noted. Daughter No problems noted. Daughter No problems noted. Son No problems noted. Son No problems noted. Social History Housing: Apartment Alcohol intake: current Alcohol intake frequency: holidays/special occasions only Alcohol type: beer Patient Tobacco Use Status: Former Tobacco user Tobacco use type: Cigarette e-Cigarette/Vaping Use: Never Used Second Hand Smoke Exposure: No service: No Current occupational status: retired Current occupational exposures/hazards: No Cognitive needs: No Hearing needs: No Vision needs: Yes Review of Systems Const All systems reviewed & are unremarkable except as noted in HPI and below Physical Exam Vital Signs: Last Vital Signs Temp 97.9 F 08/17/24 10:57 Pulse 82 08/17/24 10:57 BP 152/90 H 08/17/24 10:57 Pulse Ox 98 08/17/24 10:57 BMI result Body Mass Index 26.9 Const General: cooperative, healthy appearing, comfortable, no acute distress and alert Orientation/consciousness: patient oriented x3 Limitations: no limitations Resp Effort & Inspection: normal respiratory effort and able to speak in complete sentences Skin General skin exam: no rashes or lesions noted, elasticity normal and turgor normal Neuro General: patient oriented x3 Extrem Other: Tenderness along lateral joint line of right knee with slight swelling. No erythema, warmth. General: Yes normal to inspection, Yes full ROM, Yes capillary refill normal and Yes normal exam except as noted Psych Appearance: grossly normal Mental Status: mental status grossly normal Speech and movement: Normal speech and movement present Affect: normal affect Assessment & Plan Assessment & Plan (1) Right knee pain: Code(s): M25.561 - Pain in right knee Qualifiers: Chronicity: acute Qualified Code(s): M25.561 - Pain in right knee Plan: Given patient's self-reported concerned that he was intoxicated prior to onset of symptoms, x-ray ordered to evaluate for any contributing factors. Advised ongoing use of NSAIDs, rest, ice, compression, elevation for likely strain. Advised patient of typical timeline until resolution including up to 1-3 weeks. Advised follow up with worsening symptoms or failure to resolve. Plan See above for full details and plan. Coding Level of Care Code Est Pt Level 4 (22773) Diagnoses Acute pain of right knee M25.561 Chronicity: acute
== END 2024-08-17 11:38 | disposition home or self-care (01) ==
PROVIDERS: PCP Physician Assistant; Visit Provider Registered Nurse
DX: M25.561 Pain in right knee (principal)

== ENCOUNTER → 2024-08-17 08:42 | Outpatient (BNVA) | payer OTHER, SELFPAY | PROVIDERS: PCP Physician Assistant ==

== ENCOUNTER 2024-08-17 11:25 | Outpatient (REF) | payer OTHER, SELFPAY ==
--- NOTE | ~2024-08-17 | XR_ITS ---
EXAMINATION: XR KNEE, RIGHT CLINICAL INFORMATION: Right knee pain COMPARISON: None available. TECHNIQUE: Four views of the right knee. FINDINGS: Tricompartmental degenerative changes are seen most marked in the medial compartment which has the most joint space narrowing. Tibial plateau and femoral condyle osteophytes are present. A small joint effusion is seen. Large osteophytes seen on the back of the patella. A small metallic device is seen in the mid patella. A large bone density is seen adjacent to the inferior patella likely from chronic ligamentous injury. XR/XR knee RT 4V IMPRESSION: Tricompartmental degenerative changes most marked in the medial compartment. Electronically signed by: Aiden Arias MD 08/17/2024 12:14 PM EDT
== END 2024-08-17 11:26 | disposition home or self-care (01) ==
LOC: HO.HMGCX 11:25
PROVIDERS: PCP Physician Assistant; Visit Provider Registered Nurse
DX: M25.561 Pain in right knee (principal)
CPT/HCPCS: 73564; 99212